=== PATIENT | female | born 1970 | race Two or more races ===

== ENCOUNTER 2017-09-30 21:43 | Emergency (ER) | payer SELFPAY ==
[~2017-09-30] VITALS: Ht 160 cm; Wt 90.7 kg
[2017-09-30 21:45] VITALS: BP 160/99
[2017-09-30] MEDS ORDERED: cloNIDine HCL 0.1 MG TAB ONE (22:17)
[2017-09-30] MEDS ORDERED: cloNIDine HCL 0.1 MG TAB PO ONE (22:30)
== END 2017-09-30 22:25 | disposition left against medical advice (07) ==
LOC: ER 21:43
DX: I10 Essential (primary) hypertension (principal); Z53.21 Procedure and treatment not carried out due to patient leaving prior to being seen by health care provider
CPT/HCPCS: 93005

== ENCOUNTER → 2023-05-23 | Outpatient (CLI) | payer MEDICAID | END | disposition home or self-care (01) | LOC: XYW 10:55 | PROVIDERS: ATTEND Student in an Organized Health Care Education/Training Program | DX: S93.491D Sprain of other ligament of right ankle, subsequent encounter (principal); I70.203 Unspecified atherosclerosis of native arteries of extremities, bilateral legs; X58.XXXD Exposure to other specified factors, subsequent encounter | CPT/HCPCS: 93925 ==